=== PATIENT | male | born 1945 | race Caucasian/White ===

== ENCOUNTER 2016-11-06 08:15 | Emergency (ER) | payer MEDICAID, MEDICARE, OTHER ==
[~2016-11-06] VITALS: Ht 160 cm; Wt 77.0 kg
[2016-11-06] MEDS ORDERED: ISOS60TA4 PO (08:28)
[2016-11-06] MEDS ORDERED: FURO40TA5 PO (08:28)
[2016-11-06] MEDS ORDERED: LOSA100T14 PO (08:29)
[2016-11-06] MEDS ORDERED: CARV12.545 PO (08:29)
[2016-11-06] MEDS ORDERED: CLOP75TA33 PO (08:29)
[2016-11-06] MEDS ORDERED: OMEP20CA10 PO (08:29)
[2016-11-06] MEDS ORDERED: SODIUM CHLORIDE 0.9% 1,000 ML IV ONE (08:41)
[2016-11-06] MEDS ORDERED: ONDANSETRON HCL 4MG/2ML VIAL IV STA (08:41)
[2016-11-06] MEDS ORDERED: MORPHINE SULFATE 4 MG/ML CPJ (NOT FOR IM USE) IV STA (08:41)
[2016-11-06 09:10] LABS: BASOPHILS % 0.6 % (0.0-2.0); EOSINOPHILS % 2.6 % (0.0-5.0); HEMOGLOBIN. 13.1 g/dL (14.0-18.0); LYMPHOCYTES % 29.3 % (20.0-50.0); MEAN CORPUSCULAR HEMOGLOBIN 27.3 pg (28.0-32.0); MEAN PLATELET VOLUME 8.6 fl (7.4-10.4); MONOCYTES % 6.9 % (2.0-8.0); NEUTROPHILS % 60.6 % (40.0-76.0); PLATELET 248 x1000/uL (130-400); RED BLOOD CELL COUNT 4.81 mill/uL (4.7-6.1); RED CELL DISTRIBUTION WIDTH 14.2 % (11.6-14.6)
[2016-11-06 09:18] LABS: CHLORIDE 103 mEq/L (98-107); INR 1.1; PROTHROMBIN TIME 11.9 sec
[2016-11-06 09:27] LABS: CARBON DIOXIDE 30 mEq/L (21-32); TROPONIN I 0.03 ng/mL (0.00-0.04)
[2016-11-06 09:45] LABS: CLARITY URINE CLEAR (CLEAR); COLOR URINE YELLOW (YELLOW); GLUCOSE URINE NEGATIVE (NEGATIVE); KETONES URINE NEGATIVE (NEGATIVE); LEUKOCYTE ESTERASE URINE NEGATIVE (NEGATIVE); NITRITE URINE NEGATIVE (NEGATIVE); OCCULT BLOOD URINE NEGATIVE (NEGATIVE); PROTEIN URINE NEGATIVE (NEGATIVE); SPECIFIC GRAVITY URINE 1.026 (1.005-1.030); UROBILINOGEN URINE 0.2 E.U./dL (0.2-1.0)
[2016-11-06 14:00] VITALS: BP 151/81
== END 2016-11-06 14:31 | disposition home or self-care (01) ==
LOC: ER 08:15 → CANBEDREQ 16:11
DX: M54.31 Sciatica, right side (principal); L72.0 Epidermal cyst; N50.811 Right testicular pain; I11.9 Hypertensive heart disease without heart failure; R00.1 Bradycardia, unspecified; R79.89 Other specified abnormal findings of blood chemistry; I44.7 Left bundle-branch block, unspecified; D64.9 Anemia, unspecified
CPT/HCPCS: 36415; 71010; 76870; 80053; 81003; 83605; 83690; 83880; 84484; 85025; 85610; 87040; 87077; 87086; 93005; 93971; 93976; 96361; 96374; 96375; 99285; J2270; J2405; J7030